=== PATIENT | female | born 1990 | race Caucasian/White ===

== ENCOUNTER 2017-04-27 08:21 | Emergency (ER) | payer SELFPAY ==
[~2017-04-27] VITALS: Ht 160 cm; Wt 48.4 kg
[2017-04-27 08:24] VITALS: TEMP 36.9; Ht 160 cm; Wt 48.4 kg
[2017-04-27] MEDS ORDERED: IBUP-1050 PO (08:36)
--- NOTE | 2017-04-27 08:59 | EMERGENCY ROOM VISIT NOTE ---
History Report prepared by Scribroxy: Fredrick Kearns Under the Supervision of: Dr. Fiorella Umaña M.D. First contact with patient: 08:32 Chief Complaint: DENTAL PAIN Stated Complaint: DENTAL PAIN Nursing Triage Summary: left side dental pain. both upper and lower. pain has been for the past 3 days History of Present Illness The patient is a 26 year old female who presents to the Emergency Room with complaints of constant dental pain for the past three days. The pain is worse with eating and is rated 9/10 in severity. The patient has been taking Ibuprofen. The patient is having trouble eating and sleeping secondary to pain. The patient has had dental pain intermittently for one month which has been constant for three days. She does not currently follow up with a dentist. The patient is not from this area and is only here for a few weeks. The patient is a smoker. Source of History: patient Onset: three days ago Position: teeth Symptom Intensity: 9/10 Timing: constant Modifying Factors (Worsening): eating Review of Systems See HPI for pertinent positives & negatives. A total of 6 systems reviewed and were otherwise negative. Past Medical & Surgical Medical Problems: (1) HTN (hypertension) Surgical Problems: (1) H/O: hysterectomy Family History Cancer Hypertension Lung disease Social History Smoking Status: Current Every Day Smoker Marital Status: Housing Status: lives with friends Occupation Status: unemployed Current/Historical Medications Scheduled Ibuprofen (Advil), 200-600 MG PO Q4H Penicillin V Potassium (Veetids), 500 MG PO QID Scheduled PRN Hydrocodone/Acetaminophen 5MG/325MG ([place] 5MG/325MG), 1-2 TABLET PO Q6 PRN for Pain Allergies Coded Allergies: Ketorolac Tromethamine (Unverified Allergy, Severe, "PATCHY RASHES", ) Metoclopramide (Unverified Allergy, Severe, SEIZURES, 04/27/17) Trazodone (Unverified Allergy, Severe, SEIZURES, 04/27/17) Physical Exam Vital Signs Date Time Temp Pulse Resp B/P (MAP) Pulse Ox O2 Delivery O2 Flow Rate FiO2 04/27/17 09:27 84 16 121/84 98 04/27/17 08:24 36.9 84 18 122/85 96 Room Air Physical Exam Vital signs reviewed. General: Well-appearing female, in no significant distress. HEENT: No scleral icterus, PERRLA, neck supple. Atraumatic. Posterior left mandibular molar with significant decay and breakage, no drainage, there is surrounding gingivitis, no appreciable abscess, no facial swelling or erythema. Neurologic: Patient awake alert and oriented x 3 Skin: Warm, dry, no rash Medical Decision & Procedures ED Course 0854: Past medical records reviewed. The patient was evaluated in room B3b. A complete history and physical examination was performed. 0920: .The [place] Prescription Drug Monitoring Program was reviewed for the patient. No records were found. 0930: Discussed the discharge instructions with her. She verbalized understanding and agreement. The patient is ready for discharge. Medical Decision Differential diagnosis includes dental pain, dental abscess. Medication Reconciliation: I attest that I have personally reviewed the patient' s current medication list. Blood Pressure Screening: Patient was found to have normal blood pressure on screening and does not require follow-up. This pt was evaluated and appeared to be in some discomfort. She was found to have multiple broken and decayed teeth. Pt was given a Rx for Pen VK and Court[place]. She was referred to local dentistry. Pt will return to the ED for worsening of symptoms or any medical concerns. CT Drug Monitoring Program Search Results: patient reviewed within database Drug Monitoring Findings: No records found. Impression Primary Impression: Pain due to dental caries Scribe Attestation The scribe's documentation has been prepared under my direction and personally reviewed by me in its entirety. I confirm that the note above accurately reflects all work, treatment, procedures, and medical decision making performed by me. Departure Information Dispostion Home / Self-Care Prescriptions Penicillin V Potassium (Veetids) 500 Mg Tab 500 MG PO QID, #40 TAB Prov: Fiorella Umaña M.D. 04/27/17 Hydrocodone/Acetaminophen 5MG/325MG ([place] 5MG/325MG) Tab 1-2 TABLET PO Q6 Y for Pain, #20 TAB Prov: Fiorella Umaña M.D. 04/27/17 Referrals No Doctor, Assigned (PCP) Forms HOME CARE DOCUMENTATION FORM, IMPORTANT VISIT INFORMATION Patient Instructions My [facility] Additional Instructions Diagnosis: Dental Pain STOP SMOKING Contact Dr Hinds (dentist) at [phone], [address] [place]. Continue ibuprofen 600 mg every 6 hours as needed for pain with food. Courtland one to 2 tabs every 6 hours as needed for severe pain. Do not drive or take Tylenol with this medication. Pen VK 500 mg 4 times a day for 7 days. Return to the ER for worsening of symptoms or any medical concerns.
[2017-04-27] MEDS ORDERED: HYDR-5688 PO (09:19)
[2017-04-27] MEDS ORDERED: PENI-82 PO (09:19)
[2017-04-27 09:27] VITALS: BP 121/84; PULSE 84; O2SAT 98
== END 2017-04-27 09:28 | disposition home or self-care (01) ==
LOC: C.EDB 08:25
DX: K08.89 Other specified disorders of teeth and supporting structures (principal); K02.9 Dental caries, unspecified; I10 Essential (primary) hypertension; Z80.9 Family history of malignant neoplasm, unspecified; Z82.49 Family history of ischemic heart disease and other diseases of the circulatory system; Z83.6 Family history of other diseases of the respiratory system; F17.210 Nicotine dependence, cigarettes, uncomplicated